=== PATIENT | female | born 2000 | race Caucasian/White ===

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

== ENCOUNTER 2019-09-22 17:31 | Emergency (ER) | payer OTHER, SELFPAY ==
--- NOTE | 2019-09-22 18:28 | RAD REPORT ---
EXAM DESCRIPTION: CT - Head Brain Wo Cont - 09/22/2019 6:17 pm CLINICAL HISTORY: SYNCOPE, fall, right-sided head trauma COMPARISON: No comparisons TECHNIQUE: Axial 5 mm thick images of the head were obtained without IV contrast. All CT scans are performed using dose optimization technique as appropriate and may include automated exposure control or mA/KV adjustment according to patient size. FINDINGS: No intracranial hemorrhage, mass, edema or shift of mid-line structures. No abnormal extra -axial fluid collections. Ventricles are normal. Mastoid air cells and visualized portions of the paranasal sinuses are clear. Small right-sided parietal scalp hematoma is present. Is intact. IMPRESSION: No intracranial abnormality seen. Right parietal scalp hematoma with underlying bone intact.
--- NOTE | 2019-09-22 18:57 | RAD REPORT ---
EXAM DESCRIPTION: RAD - Chest Single View - 09/22/2019 6:10 pm CLINICAL HISTORY: syncope, shortness of breath TECHNIQUE: AP portable chest image was obtained 09/22/2019 6:10 pm . FINDINGS: Lungs are clear. Bilateral nipple shadows are present. Heart and vasculature are normal. N o measurable pleural effusion and no pneumothorax. No acute bony abnormality seen. No acute aortic fi ndings suspected. IMPRESSION: No acute cardiopulmonary process.
[2019-09-22 19:15] LABS: Absolute Lymphocytes (CBC) 1.5 K/uL (0.7-4.9); Basophils % 0.2 % (0-1.3); Hematocrit 41.3 % (36.0-45.0); Lymphocytes % 12.4 % (15.3-44.8); MPV 8.3 fL (7.6-11.3); RBC Red Blood Cell Count 4.35 M/uL (3.86-4.86)
[2019-09-22 19:32] LABS: BUN Blood Urea Nitrogen 11 mg/dL (7-18); Bicarbonate 28 mmol/L (21-32); Glucose Level 98 mg/dL (74-106); Sodium Level 142 mmol/L (136-145)
--- NOTE | 2019-09-22 19:56 | ER ---
Nurse's Notes [facility] Name: Susy Sewell Age: 19 yrs Sex: Female : 2000 Arrival Date: 09/22/2019 Time: 17:33 Bed 27 Private MD: Diagnosis: Syncope and collapse;Contusion of scalp Presentation: 09/21 17:34 Chief complaint:. Chief complaint: EMS states: "Patient was at work at [employer] when vc she has a syncopal episode with +LOC. Patient hit her head on the tile floor when she passed out. She refused to let us start an IV. She states she wasn't feeling well last week and was swabbed for the flu and strep, both results were negative.". Coronavirus screen: The patient has NOT traveled to a country currently being monitored by the CDC within the last 14 days. Ebola Screen: No symptoms or risks identified at this time. Initial Sepsis Screen: Does the patient meet any 2 criteria? No. Patient's initial sepsis screen is negative. Does the patient have a suspected source of infection? No. Patient's initial sepsis screen is negative. Risk Assessment: Do you want to hurt yourself or someone else? Patient reports no desire to harm self or others. 17:34 Method Of Arrival: EMS: [facility] vc 17:34 Acuity: SHEILA 3 vc Historical: - Allergies: 17:51 No Known Allergies; vc - Home Meds: 17:51 None [Active]; vc - PMHx: 17:51 Anxiety; Bipolar disorder; vc - PSHx: 17:51 "Ovarian surgery as a baby"; vc - Immunization history:: Adult Immunizations up to date. - Social history:: Smoking status: Patient denies any tobacco usage or history of. Assessment: 17:33 General: Appears in no apparent distress. comfortable. Pain: Denies pain. Neuro: Level vc of Consciousness is awake, alert, obeys commands, Oriented to person, place, time, situation, Appropriate for age. Cardiovascular: Reports diaphoresis, lightheadedness, nausea, syncope, Rhythm is regular. Respiratory: Airway is patent Respiratory effort is even, unlabored, Respiratory pattern is regular, symmetrical. GI: No signs and/or symptoms were reported involving the gastrointestinal system. : No signs and/or symptoms were reported regarding the genitourinary system. EENT: No signs and/or symptoms were reported regarding the EENT system. Derm: knot on right side of head. Musculoskeletal: No signs and/or symptoms reported regarding the musculoskeletal system. 18:30 Reassessment: Patient and/or family updated on plan of care and expected duration. Pain vc level reassessed. Patient is alert, oriented x 3, equal unlabored respirations, skin warm/dry/pink. 19:30 Reassessment: Patient and/or family updated on plan of care and expected duration. Pain vc level reassessed. Patient is alert, oriented x 3, equal unlabored respirations, skin warm/dry/pink. Patient states symptoms have improved. Vital Signs: 17:37 BP 106 / 75; Pulse 68; Resp 16; Temp 97.8(O); Pulse Ox 100% ; lt1 ED Course: 17:33 Patient arrived in ED. vc 17:37 Triage completed. vc 17:40 Jered Perez FNP-C is PHCP. la1 17:40 John Cowan MD is Attending Physician. la1 17:52 Mounika Nair, MIGUEL is Primary Nurse. vc 18:30 Chest Single View XRAY In Process Unspecified. EDMS 19:21 CT Head Brain wo Cont Sent. vc Administered Medications: No medications were administered Outcome: 19:55 Discharge ordered by . la1 20:36 Patient left the ED. mw2 Signatures: Dispatcher [employer] EDMS Jered Perez FNP-C DIGITAL ART DIRECTOR-[facility] Jesenia Cano mw2 Oumou Oliverah lt1 Mounika Nair, RN RN vc
--- NOTE | 2019-09-22 19:56 | EDPHYS ---
Physician Documentation [facility] Name: Susy Sewell Age: 19 yrs Sex: Female : 2000 Arrival Date: 09/22/2019 Time: 17:33 Bed 27 Private MD: ED Physician John Cowan HPI: 09/21 18:38 This 19 yrs old Female presents to ER via EMS with complaints of Syncope. la1 18:38 The patient has experienced syncope, became unresponsive. Onset: The symptoms/episode la1 began/occurred just prior to arrival. Duration: This was a single episode. Context: occurred at work, occurred while the patient was standing, Just prior to the episode the patient experienced abdominal pain. Associated injury: Head/face: swelling, hematoma to right posterior scalp. Associated signs and symptoms: Pertinent positives:. Associated signs and symptoms: Pertinent negatives: abdominal pain, agitation, ataxia, blurred vision, chest pain, combativeness, confusion, diaphoresis. Current symptoms: Currently, the patient is not experiencing any symptoms. The patient has not experienced similar symptoms in the past. Historical: - Allergies: 17:51 No Known Allergies; vc - Home Meds: 17:51 None [Active]; vc - PMHx: 17:51 Anxiety; Bipolar disorder; vc - PSHx: 17:51 "Ovarian surgery as a baby"; vc - Immunization history:: Adult Immunizations up to date. - Social history:: Smoking status: Patient denies any tobacco usage or history of. ROS: 18:39 Constitutional: Negative for fever, chills, and weight loss, Eyes: Negative for injury, la1 pain, redness, and discharge, ENT: Negative for injury, pain, and discharge, Neck: Negative for injury, pain, and swelling, Cardiovascular: Negative for chest pain, palpitations, and edema, Respiratory: Negative for shortness of breath, cough, wheezing, and pleuritic chest pain, Abdomen/GI: Negative for abdominal pain, nausea, vomiting, diarrhea, and constipation, Back: Negative for injury and pain, MS/Extremity: Negative for injury and deformity, Skin: Negative for injury, rash, and discoloration. Exam: 18:40 Constitutional: This is a well developed, well nourished patient who is awake, alert, la1 and in no acute distress. 18:40 Eyes: Pupils equal round and reactive to light, extra-ocular motions intact. Lids and lashes normal. Conjunctiva and sclera are non-icteric and not injected. Cornea within normal limits. Periorbital areas with no swelling, redness, or edema. ENT: Mucous membranes moist. Neck: Trachea midline Chest/axilla: Normal chest wall appearance and motion. Cardiovascular: Regular rate and rhythm with a normal S1 and S2. Respiratory: Lungs have equal breath sounds bilaterally, clear to auscultation Abdomen/GI: Soft, non-tender, with normal bowel sounds. Back: No spinal tenderness. No costovertebral tenderness. Full range of motion. Skin: Warm, dry with normal turgor. Normal color with no rashes, no lesions, and no evidence of cellulitis. MS/ Extremity: Pulses equal, no cyanosis. Neurovascular intact. Full, normal range of motion. 18:40 Head/face: Noted is hematoma, that is moderate, of the right side of the back of head. Vital Signs: 17:37 BP 106 / 75; Pulse 68; Resp 16; Temp 97.8(O); Pulse Ox 100% ; lt1 MDM: 17:52 Patient medically screened. la1 19:53 Differential Diagnosis: cardiac arrhythmia, cerebrovascular accident, drug effect, la1 idiopathic syncope, , pseudo seizure, seizure, vasovagal episode. Data reviewed: vital signs, nurses notes, EMS record, lab test result(s), EKG, radiologic studies, and as a result, I will discharge patient. Data interpreted: Pulse oximetry: on room air is 100 %. Interpretation: normal. Counseling: I had a detailed discussion with the patient and/or guardian regarding: the historical points, exam findings, and any diagnostic results supporting the discharge/admit diagnosis, lab results, radiology results, the need for outpatient follow up, a family practitioner, to return to the emergency department if symptoms worsen or persist or if there are any questions or concerns that arise at home. Special discussion: Based on the patient's history, exam, and Dx evaluation, there is no indication for emergent intervention or inpatient Tx. It is understood by the patient/guardian that if the Sx's persist or worsen they need to return immediately for re-evaluation. ED course: discussed that thyroid testing could be completed on an outpatient basis as pt is not showing overt sx of hypothyroidism. 09/21 17:51 Order name: CBC with Diff; Complete Time: 19:24 [facility] 09/21 17:51 Order name: BMP; Complete Time: 19:48 [facility] 09/21 17:51 Order name: CT Head Brain wo Cont [facility] 09/21 17:51 Order name: Chest Single View XRAY; Complete Time: 19:48 [facility] 09/21 19:30 Order name: Urine Dipstick--Ancillary (enter results) [facility] 09/21 19:30 Order name: Urine --Ancillary (enter results) [facility] 09/21 17:51 Order name: EKG; Complete Time: 17:51 [facility] 09/21 17:51 Order name: EKG - Nurse/Tech; Complete Time: 19:21 [facility] 09/21 17:51 Order name: IV; Complete Time: 19:08 [facility] 09/21 17:51 Order name: Urine Dipstick-Ancillary (obtain specimen); Complete Time: 19:21 [facility] 09/21 17:51 Order name: Urine Test (obtain specimen); Complete Time: 19:21 [facility] 09/21 19:15 Order name: CT; Complete Time: 19:24 EDMS Administered Medications: No medications were administered Disposition: 09/22 07:38 Co-signature as Attending Physician, John Cowan MD I agree with the assessment and kdr plan of care. Disposition: 09/22/19 19:55 Discharged to Home. Impression: Syncope and collapse, Contusion of scalp. - Condition is Stable. - Discharge Instructions: Near-Syncope, Syncope, Vasovagal Syncope, Adult. - Work release form, Medication Reconciliation Form, Thank You Letter form. - Follow up: Private Physician; When: 2 - 3 days; Reason: Recheck today's complaints, Re-evaluation by your physician. - Problem is new. - Symptoms have improved. Signatures: Dispatcher [employer] EDMS John Cowan MD MD [facility] Jered Perez, WARRANTY ADMINISTRATOR-C WARRANTY ADMINISTRATOR-Cla1 Jesenia Cano mw2 Mounika Nair, RN RN vc Corrections: (The following items were deleted from the chart) 09/21 20:36 19:55 09/22/2019 19:55 Discharged to Home. Impression: Syncope and collapse; Contusion mw2 of scalp. Condition is Stable. Forms are Medication Reconciliation Form, Thank You Letter, Antibiotic Education, Prescription Opioid Use. Follow up: Private Physician; When: 2 - 3 days; Reason: Recheck today's complaints, Re-evaluation by your physician. Problem is new. Symptoms have improved. la1
[2019-09-22 20:26] LABS: Urine Blood NEGATIVE (NEG); Urine Glucose NEGATIVE (NEG); Urine Protein TRACE (NEG); Urine Specific Gravity >1.030 (1.005-1.030)
[2019-09-22 21:05] VITALS: BP 106/75; TEMP 97.8; O2SAT 100
--- NOTE | 2019-09-23 07:29 | EKG ---
Test Date: 2019-09-22 Test Time: 19:13:24 Heading Pinner: GRAYSON MEASUREMENT RESULTS: Intervals: Rate: 63 WI: 142 QRSD: 76 QT: 408 QTc: 417 [place]: P: 46 WI: 142 QRS: 81 T: 67 INTERPRETIVE STATEMENTS: Normal sinus rhythm with sinus arrhythmia Normal ECG Compared to ECG 07/07/2007 13:09:05 No significant changes Electronically Signed On 09-23-19 07:27:49 CDT by Amadou Somers
== END 2019-09-22 20:36 | disposition home or self-care (01) ==
LOC: ER 17:31
DX: S00.03XA Contusion of scalp, initial encounter (principal); X58.XXXA Exposure to other specified factors, initial encounter; Y93.9 Activity, unspecified; Y92.89 Other specified places as the place of occurrence of the external cause; Y99.8 Other external cause status
CPT/HCPCS: 36415; 70450; 71045; 80048; 81003; 81025; 85025; 93005; 99283

== ENCOUNTER 2019-12-20 13:36 | Emergency (ER) | payer SELFPAY ==
--- NOTE | 2019-12-20 14:55 | RAD REPORT ---
EXAM DESCRIPTION: RAD - Knee Right 3 View - 12/20/2019 2:45 pm CLINICAL HISTORY: PAIN COMPARISON: No comparisons FINDINGS: No fracture, dislocation or periosteal reaction.No joint effusion seen. No joint space anthony rowing. No foreign body or other soft tissue abnormality. IMPRESSION: Negative right knee. Clinical concerns for internal derangement or occult bony injury could be further assessed with MR im aging.
[2019-12-20] MEDS ORDERED: HYDROCODONE/APAP 5/325 MG TAB ONE (15:05)
--- NOTE | 2019-12-20 17:38 | RAD REPORT ---
EXAM DESCRIPTION: MRI - Knee Right Wo Cont - 12/20/2019 5:27 pm CLINICAL HISTORY: pain, no rom COMPARISON: Knee Right 3 View dated 12/20/2019 TECHNIQUE: Sagittal and axial PD and T2 fat sat sequences obtained. Coronal T2 fat sat and T1 sequen leonard also obtained. FINDINGS: No occult fracture marrow replacing process or confirmed bone bruising. There are no corti sunshine disruption changes identifiable. No chondromalacia or acute chondral finding. No full thickness o steochondral defect. The anterior cruciate, posterior cruciate, medial collateral and lateral collateral ligaments are int act. No meniscal tear or suspicious meniscal signal pattern. Patella tendon, quadriceps tendon and the support structures show no suspicious finding. No abnormal joint effusion. No intra-articular loose body seen. Adjacent soft tissue show no suspicious finding. IMPRESSION: MRI right knee examination shows no significant finding.
--- NOTE | 2019-12-20 17:47 | ER ---
Nurse's Notes [facility] Name: Ssuy Sewell Age: 19 yrs Sex: Female : 2000 Arrival Date: 12/20/2019 Time: 13:40 Bed 25 Private MD: Diagnosis: Fall on same level from slipping, tripping and stumbling;Pain in right knee Presentation: 12/19 13:52 Chief complaint: Patient states: i was mopping and i slipped and fell and i felt a snap tw2 in my RIGHT knee cap and my boyfriend helped me stand up and we heard it pop back in place and i cant stand on it at all, it feels like i ripped something or tore something. Coronavirus screen: Patient denies a cough. Patient denies shortness of breath or difficulty breathing. Patient denies measured and/or subjective temperature greater than 100.4F prior to today's visit. Patient denies travel on a cruise ship or to a country the [facility] currently lists as an affected area. Patient denies contact with known and/or suspected case of COVID-19. Ebola Screen: Patient denies travel to an Ebola-affected area in the 21 days before illness onset. Initial Sepsis Screen: Does the patient meet any 2 criteria? No. Patient's initial sepsis screen is negative. Does the patient have a suspected source of infection? No. Patient's initial sepsis screen is negative. Risk Assessment: Do you want to hurt yourself or someone else? Patient reports no desire to harm self or others. Onset of symptoms was December 20, 2019. 13:52 Method Of Arrival: Wheelchair tw2 13:52 Acuity: SHEILA 4 tw2 Triage Assessment: 13:54 General: Appears in no apparent distress. uncomfortable, slender, Behavior is calm, tw2 cooperative, appropriate for age. Pain: Complains of pain in right knee. 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 - Social history:: Smoking status: Patient uses street drugs, marijuana, "i spoke pot every other weekend", Patient/guardian denies using tobacco products. Screenin:42 Abuse screen: Denies threats or abuse. Nutritional screening: No deficits noted. tw2 Tuberculosis screening: No symptoms or risk factors identified. Fall Risk None identified. Assessment: 14:20 General: Appears in no apparent distress. slender, Behavior is calm, cooperative, tw2 appropriate for age. Pain: Complains of pain in right knee. Neuro: Level of Consciousness is awake, alert, obeys commands, Oriented to person, place, time, situation. Cardiovascular: Capillary refill < 3 seconds Patient's skin is warm and dry. Respiratory: Airway is patent Respiratory effort is even, unlabored, Respiratory pattern is regular, symmetrical. GI: No signs and/or symptoms were reported involving the gastrointestinal system. : No signs and/or symptoms were reported regarding the genitourinary system. EENT: No signs and/or symptoms were reported regarding the EENT system. Derm: No signs and/or symptoms reported regarding the dermatologic system. Musculoskeletal: Circulation, motion, and sensation intact. Range of motion: limited in right knee Reports pain in right knee. Vital Signs: 13:52 BP 112 / 74; Pulse 77; Resp 17; Temp 98.3(TE); Pulse Ox 96% on R/A; Weight 49.9 kg (R); tw2 Height 5 ft. 5 in. (165.10 cm); Pain 7/10; 13:52 Body Mass Index 18.30 (49.90 kg, 165.10 cm) tw2 ED Course: 13:40 Patient arrived in ED. fj1 13:54 Triage completed. tw2 13:54 Arm band placed on. tw2 14:00 Lashell Valentin [facility]C [facility]. snw 14:00 John Cowan MD is Attending Physician. snw 14:19 Ayala Babin, MIGUEL is Primary Nurse. iw 14:20 Bed in low position. Call light in reach. tw2 14:46 Knee Right 3 View XRAY In Process Unspecified. EDMS 17:23 Knee Right Wo Cont In Process Unspecified. EDMS 17:45 Alex Mcdonald MD is Referral Physician. snw 18:10 No provider procedures requiring assistance completed. Patient did not have IV access iw during this emergency room visit. Administered Medications: 15:01 Drug: Dexter 5 mg-325 mg 1 tabs Route: PO; iw 15:30 Follow up: Response: No adverse reaction iw 18:06 Drug: Valium 5 mg Route: PO; iw 18:25 Follow up: Response: No adverse reaction iw Outcome: 17:47 Discharge ordered by MD. prado 18:11 Discharged to home ambulatory. iw 18:11 Condition: good 18:11 Discharge instructions given to patient, Instructed on discharge instructions, follow up and referral plans. medication usage, Demonstrated understanding of instructions, follow-up care, medications, Prescriptions given X 2. 18:12 Patient left the ED. iw Signatures: Dispatcher [employer] EDMS Lashell Valentin, MEETING PLANNER-C MEETING PLANNER-Csnw Ayala Babin, RN RN iw Ricarda Godwin RN RN tw2 Lan White fj1
--- NOTE | 2019-12-20 17:47 | EDPHYS ---
Physician Documentation [facility] Name: Susy Sewell Age: 19 yrs Sex: Female : 2000 Arrival Date: 12/20/2019 Time: 13:40 Bed 25 Private MD: ED Physician John Cowan HPI: 12/19 16:35 This 19 yrs old Female presents to ER via Wheelchair with complaints of Fall snw Injury. 16:35 Details of fall: The patient fell from an upright position, slipped while mopping. snw Onset: The symptoms/episode began/occurred suddenly, today. Associated injuries: The patient sustained right knee, decreased range of motion, painful injury, swelling. Severity of symptoms: At their worst the symptoms were incapacitating, in the emergency department the symptoms have improved, moderately. The patient has not experienced similar symptoms in the past. The patient has not recently seen a physician. 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 - Social history:: Smoking status: Patient uses street drugs, marijuana, "i spoke pot every other weekend", Patient/guardian denies using tobacco products. ROS: 16:34 Constitutional: Negative for fever, chills, and weight loss, Eyes: Negative for injury, snw pain, redness, and discharge, ENT: Negative for injury, pain, and discharge, Neck: Negative for injury, pain, and swelling, Cardiovascular: Negative for chest pain, palpitations, and edema, Respiratory: Negative for shortness of breath, cough, wheezing, and pleuritic chest pain, Abdomen/GI: Negative for abdominal pain, nausea, vomiting, diarrhea, and constipation, Back: Negative for injury and pain, : Negative for injury, bleeding, discharge, and swelling, Skin: Negative for injury, rash, and discoloration, Neuro: Negative for headache, weakness, numbness, tingling, and seizure, Psych: Negative for depression, anxiety, suicide ideation, homicidal ideation, and hallucinations. 16:34 MS/extremity: Positive for decreased range of motion, pain, swelling, of the right knee. Exam: 16:33 Constitutional: This is a well developed, well nourished patient who is awake, alert, snw and in no acute distress. Head/Face: Normocephalic, atraumatic. Eyes: Pupils equal round and reactive to light, extra-ocular motions intact. Lids and lashes normal. Conjunctiva and sclera are non-icteric and not injected. Cornea within normal limits. Periorbital areas with no swelling, redness, or edema. ENT: Nares patent. No nasal discharge, no septal abnormalities noted. Tympanic membranes are normal and external auditory canals are clear. Oropharynx with no redness, swelling, or masses, exudates, or evidence of obstruction, uvula midline. Mucous membranes moist. Neck: Trachea midline, no thyromegaly or masses palpated, and no cervical lymphadenopathy. Supple, full range of motion without nuchal rigidity, or vertebral point tenderness. No Meningismus. Chest/axilla: Normal chest wall appearance and motion. Nontender with no deformity. No lesions are appreciated. Cardiovascular: Regular rate and rhythm with a normal S1 and S2. No gallops, murmurs, or rubs. Normal PMI, no JVD. No pulse deficits. Respiratory: Lungs have equal breath sounds bilaterally, clear to auscultation and percussion. No rales, rhonchi or wheezes noted. No increased work of breathing, no retractions or nasal flaring. Abdomen/GI: Soft, non-tender, with normal bowel sounds. No distension or tympany. No guarding or rebound. No evidence of tenderness throughout. Back: No spinal tenderness. No costovertebral tenderness. Full range of motion. Skin: Warm, dry with normal turgor. Normal color with no rashes, no lesions, and no evidence of cellulitis. Neuro: Awake and alert, GCS 15, oriented to person, place, time, and situation. Cranial nerves II-XII grossly intact. Motor strength 5/5 in all extremities. Sensory grossly intact. Cerebellar exam normal. Normal gait. Psych: Awake, alert, with orientation to person, place and time. Behavior, mood, and affect are within normal limits. 16:33 Musculoskeletal/extremity: Extremities: grossly normal except: noted in the right knee: decreased ROM, pain, swelling, Circulation is intact in all extremities. Vital Signs: 13:52 BP 112 / 74; Pulse 77; Resp 17; Temp 98.3(TE); Pulse Ox 96% on R/A; Weight 49.9 kg (R); tw2 Height 5 ft. 5 in. (165.10 cm); Pain 7/10; 13:52 Body Mass Index 18.30 (49.90 kg, 165.10 cm) tw2 MDM: 14:42 Patient medically screened. snw 20:30 Data reviewed: vital signs, nurses notes. Data interpreted: Pulse oximetry: on room air snw is 96 %. Interpretation: normal. Counseling: I had a detailed discussion with the patient and/or guardian regarding: the historical points, exam findings, and any diagnostic results supporting the discharge/admit diagnosis, radiology results, the need for outpatient follow up, to return to the emergency department if symptoms worsen or persist or if there are any questions or concerns that arise at home. Response to treatment: the patient's symptoms have mildly improved after treatment. Special discussion: Based on the history and exam findings, there is no indication for further emergent testing or inpatient evaluation. I discussed with the patient/guardian the need to see the orthopedic surgeon for further evaluation of the symptoms. I discussed with the patient/guardian the need to see the primary care provider for further evaluation of the symptoms. 12/19 14:01 Order name: Knee Right 3 View XRAY; Complete Time: 15:04 snw 12/19 15:24 Order name: Knee Right Wo Cont; Complete Time: 17:42 EDMS 12/19 17:44 Order name: Antonio wrap-joint; Complete Time: 18:06 snw Administered Medications: 15:01 Drug: [place] 5 mg-325 mg 1 tabs Route: PO; iw 15:30 Follow up: Response: No adverse reaction iw 18:06 Drug: Valium 5 mg Route: PO; iw 18:25 Follow up: Response: No adverse reaction iw Disposition: 12/20 13:44 Co-signature as Attending Physician, John Cowan MD I agree with the assessment and kdr plan of care. Disposition: 12/20/19 17:47 Discharged to Home. Impression: Fall on same level from slipping, tripping and stumbling, Pain in right knee. - Condition is Stable. - Discharge Instructions: Joint Pain, Fall Prevention in the Home, How to Use a Knee Brace, Knee Pain, Cryotherapy, [id number], Heat Therapy. - Prescriptions for Mobic 7.5 mg Oral Tablet - take 1 tablet by ORAL route once daily take with food; 20 tablet. Cyclobenzaprine 10 mg Oral Tablet - take 1 tablet by ORAL route every 8 hours As needed; 30 tablet. - Medication Reconciliation Form, Thank You Letter, Antibiotic Education, Prescription Opioid Use, Work release form form. - Follow up: Emergency Department; When: As needed; Reason: Worsening of condition. Follow up: Alex Mcdonald MD; When: 10 - 14 days; Reason: Recheck today's complaints, Continuance of care, Re-evaluation by your physician. Follow up: Private Physician; When: 1 - 2 days; Reason: Recheck today's complaints, Continuance of care, Re-evaluation by your physician. Signatures: Dispatcher [employer] EDMS John Cowan MD MD [facility] Lashell Valentin FNP-C MACHINE EDGE BANDER-Ayala Marte, MIGUEL RN Ricarda Godwin RN RN tw2 Corrections: (The following items were deleted from the chart) 12/19 18:12 17:47 12/20/2019 17:47 Discharged to Home. Impression: Fall on same level from iw slipping, tripping and stumbling; Pain in right knee. Condition is Stable. Forms are Medication Reconciliation Form, Thank You Letter, Antibiotic Education, Prescription Opioid Use. Follow up: Emergency Department; When: As needed; Reason: Worsening of condition. Follow up: Alex Mcdonald; When: 10 - 14 days; Reason: Recheck today's complaints, Continuance of care, Re-evaluation by your physician. Follow up: Private Physician; When: 1 - 2 days; Reason: Recheck today's complaints, Continuance of care, Re-evaluation by your physician. snw
[2019-12-20] MEDS ORDERED: DIAZEPAM 5 MG TABLET ONE (18:07)
[2019-12-20 18:20] VITALS: BP 112/74; TEMP 98.3; O2SAT 96
== END 2019-12-20 18:12 | disposition home or self-care (01) ==
LOC: ER 13:36
DX: M25.561 Pain in right knee (principal); W01.0XXA Fall on same level from slipping, tripping and stumbling without subsequent striking against object, initial encounter; Y93.E5 Activity, floor mopping and cleaning; Y92.9 Unspecified place or not applicable
CPT/HCPCS: 99283

== ENCOUNTER 2019-12-31 22:38 | Emergency (ER) | payer OTHER, SELFPAY ==
--- NOTE | 2019-12-31 23:13 | ER ---
Nurse's Notes [facility] Name: Susy Sewell Age: 19 yrs Sex: Female : 2000 Arrival Date: 12/31/2019 Time: 22:42 Bed 4 Private MD: Diagnosis: Pain in right knee;Sprain of medial collateral ligament of right knee Presentation: 12/30 22:49 Chief complaint: Patient states: Dislocated right knee over 10 days ago. States she ll1 took off work for 6 days. When she went back to work (12/28) right ankle began to swell since. PMS intact. Coronavirus screen: Proceed with normal triage. Patient denies a cough. Patient denies shortness of breath or difficulty breathing. Patient denies measured and/or subjective temperature greater than 100.4F prior to today's visit. Patient denies travel on a cruise ship or to a country the [facility] currently lists as an affected area. Patient denies contact with known and/or suspected case of COVID-19. Ebola Screen: Patient denies travel to an Ebola-affected area in the 21 days before illness onset. Initial Sepsis Screen: Does the patient meet any 2 criteria? No. Patient's initial sepsis screen is negative. Risk Assessment: Do you want to hurt yourself or someone else? Patient reports no desire to harm self or others. Onset of symptoms was December 28, 2019. 22:49 Method Of Arrival: Ambulatory ll1 22:49 Acuity: SHEILA 4 ll1 23:05 Initial Sepsis Screen: Does the patient have a suspected source of infection? No. mg2 Patient's initial sepsis screen is negative. LATHE WINDER: 23:50 lmp unknwn mg2 Historical: - Allergies: 22:53 No Known Allergies; ll1 - PMHx: 22:53 Anxiety; Bipolar disorder; ll1 - PSHx: 22:53 "Ovarian surgery as a baby"; ll1 - Immunization history:: Flu vaccine is not up to date. - Social history:: Smoking status: Patient denies any tobacco usage or history of. Patient/guardian denies using alcohol, street drugs, tobacco products. - Family history:: not pertinent. Screenin:04 Abuse screen: Denies threats or abuse. Denies injuries from another. Nutritional mg2 screening: No deficits noted. Tuberculosis screening: No symptoms or risk factors identified. Fall Risk Ambulatory Aid- None/Bed Rest/Nurse Assist (0 pts). Assessment: 23:03 General: Appears in no apparent distress. comfortable, Behavior is calm, cooperative. mg2 Pain: Complains of pain in right knee (inner side) and numbness and tingling in the right ankle. Neuro: Level of Consciousness is awake, alert, obeys commands, Oriented to person, place, time, situation. Cardiovascular: Capillary refill < 3 seconds Patient's skin is warm and dry. Respiratory: Airway is patent Respiratory effort is even, unlabored, Respiratory pattern is regular, symmetrical. GI: No signs and/or symptoms were reported involving the gastrointestinal system. : No signs and/or symptoms were reported regarding the genitourinary system. EENT: No signs and/or symptoms were reported regarding the EENT system. Derm: Skin is intact, is healthy with good turgor, Skin is pink, warm \\T\\ dry. normal. Musculoskeletal: Circulation, motion, and sensation intact. Capillary refill < 3 seconds. Vital Signs: 22:49 BP 120 / 83; Pulse 63; Resp 16; Temp 98.6; Pulse Ox 98% ; Pain 9/10; ll1 23:50 BP 120 / 80; Pulse 70; Resp 18; Temp 98; Pulse Ox 100% on R/A; mg2 ED Course: 22:42 Patient arrived in ED. es 22:53 Triage completed. ll1 22:54 Arm band placed on Patient placed in an exam room, on a stretcher. ll1 22:55 Grant Pena RN is Primary Nurse. mg2 22:56 Allen Mukherjee MD is Attending Physician. day 23:04 Patient has correct armband on for positive identification. mg2 23:04 No provider procedures requiring assistance completed. Patient did not have IV access mg2 during this emergency room visit. 23:12 Alex Mcdonald MD is Referral Physician. day 23:18 Door closed. Warm blanket given. Ice pack to injury. mg2 23:45 Crutch training done. Knee immobilizer applied on right knee. mg2 Administered Medications: 23:17 Drug: [place] (7.5 mg-325 mg) 1 tabs Route: PO; mg2 23:50 Follow up: Response: No adverse reaction mg2 Outcome: 23:13 Discharge ordered by . day 23:52 Discharged to home with crutches, with family. mg2 23:52 Condition: stable 23:52 Discharge instructions given to patient, family, Instructed on discharge instructions, mg2 follow up and referral plans. medication usage, crutch walking, Demonstrated understanding of instructions, follow-up care, medications, crutch walking. 23:53 Patient left the ED. mg2 Signatures: Allen Mukherjee MD MD cha Salyer, Edna es Gardose, Michele, RN RN mg2 Percy Chambers RN RN ll1
--- NOTE | 2019-12-31 23:13 | EDPHYS ---
Physician Documentation [facility] Name: Susy Sewell Age: 19 yrs Sex: Female : 2000 Arrival Date: 12/31/2019 Time: 22:42 Bed 4 Private MD: ED Physician Allen Mukherjee HPI: 12/30 23:08 This 19 yrs old Female presents to ER via Ambulatory with complaints of FOOT day AND KNEE PROBLEM. 23:08 The patient presents with decreased range of motion, pain, swelling. The complaints day affect the right knee. Context: The problem was sustained at home. Onset: The symptoms/episode began/occurred 1 week(s) ago. Modifying factors: The symptoms are alleviated by remaining still, the symptoms are aggravated by nothing. Associated signs and symptoms: The patient has no apparent associated signs or symptoms. Treatment prior to arrival includes: splinting the affected extremity. Severity of symptoms: At their worst the symptoms were moderate, in the emergency department the symptoms are unchanged. The patient has not experienced similar symptoms in the past. [employer]: 23:50 lmp unknwn mg2 Historical: - Allergies: 22:53 No Known Allergies; ll1 - PMHx: 22:53 Anxiety; Bipolar disorder; ll1 - PSHx: 22:53 "Ovarian surgery as a baby"; ll1 - Immunization history:: Flu vaccine is not up to date. - Social history:: Smoking status: Patient denies any tobacco usage or history of. Patient/guardian denies using alcohol, street drugs, tobacco products. - Family history:: not pertinent. ROS: 23:08 Constitutional: Negative for fever, chills, and weight loss, Eyes: Negative for injury, day pain, redness, and discharge, ENT: Negative for injury, pain, and discharge, Neck: Negative for injury, pain, and swelling, Cardiovascular: Negative for chest pain, palpitations, and edema, Respiratory: Negative for shortness of breath, cough, wheezing, and pleuritic chest pain, Abdomen/GI: Negative for abdominal pain, nausea, vomiting, diarrhea, and constipation, Back: Negative for injury and pain, : Negative for injury, bleeding, discharge, and swelling, Skin: Negative for injury, rash, and discoloration, Neuro: Negative for headache, weakness, numbness, tingling, and seizure, Psych: Negative for depression, anxiety, suicide ideation, homicidal ideation, and hallucinations, Allergy/Immunology: Negative for hives, rash, and allergies, Endocrine: Negative for neck swelling, polydipsia, polyuria, polyphagia, and marked weight changes, Hematologic/Lymphatic: Negative for swollen nodes, abnormal bleeding, and unusual bruising. 23:08 MS/extremity: Positive for decreased range of motion, pain, of the lateral aspect of right knee and right knee. Exam: 23:08 Constitutional: This is a well developed, well nourished patient who is awake, alert, day and in no acute distress. Head/Face: Normocephalic, atraumatic. Eyes: Pupils equal round and reactive to light, extra-ocular motions intact. Lids and lashes normal. Conjunctiva and sclera are non-icteric and not injected. Cornea within normal limits. Periorbital areas with no swelling, redness, or edema. ENT: Nares patent. No nasal discharge, no septal abnormalities noted. Tympanic membranes are normal and external auditory canals are clear. Oropharynx with no redness, swelling, or masses, exudates, or evidence of obstruction, uvula midline. Mucous membranes moist. Neck: Trachea midline, no thyromegaly or masses palpated, and no cervical lymphadenopathy. Supple, full range of motion without nuchal rigidity, or vertebral point tenderness. No Meningismus. Chest/axilla: Normal chest wall appearance and motion. Nontender with no deformity. No lesions are appreciated. Cardiovascular: Regular rate and rhythm with a normal S1 and S2. No gallops, murmurs, or rubs. Normal PMI, no JVD. No pulse deficits. Respiratory: Lungs have equal breath sounds bilaterally, clear to auscultation and percussion. No rales, rhonchi or wheezes noted. No increased work of breathing, no retractions or nasal flaring. Abdomen/GI: Soft, non-tender, with normal bowel sounds. No distension or tympany. No guarding or rebound. No evidence of tenderness throughout. Back: No spinal tenderness. No costovertebral tenderness. Full range of motion. Skin: Warm, dry with normal turgor. Normal color with no rashes, no lesions, and no evidence of cellulitis. Neuro: Awake and alert, GCS 15, oriented to person, place, time, and situation. Cranial nerves II-XII grossly intact. Motor strength 5/5 in all extremities. Sensory grossly intact. Cerebellar exam normal. Normal gait. Psych: Awake, alert, with orientation to person, place and time. Behavior, mood, and affect are within normal limits. 23:08 Musculoskeletal/extremity: Extremities: grossly normal except: decreased ROM, pain, ROM: limited active range of motion due to pain, limited passive range of motion due to pain, in the lateral aspect of right knee and right knee, Pulses: are normal with no appreciated deficits, Sensation intact. Compartment Syndrome exam of affected extremity: is normal. DVT Exam: no swelling, negative Homans' sign noted on exam, no appreciated bluish discoloration, no erythema, no increased warmth, pain, tenderness. Vital Signs: 22:49 BP 120 / 83; Pulse 63; Resp 16; Temp 98.6; Pulse Ox 98% ; Pain 9/10; ll1 23:50 BP 120 / 80; Pulse 70; Resp 18; Temp 98; Pulse Ox 100% on R/A; mg2 MDM: 22:56 Patient medically screened. [facility] 23:11 Data reviewed: vital signs, nurses notes, radiologic studies, MRI, plain films. [facility] 12/30 23:06 Order name: Knee Immobilizer; Complete Time: 23:17 [facility] 12/30 23:06 Order name: Crutches; Complete Time: 23:53 [facility] 12/30 23:06 Order name: Ice pack; Complete Time: 23:17 [facility] Administered Medications: 23:17 Drug: [employer] (7.5 mg-325 mg) 1 tabs Route: PO; mg2 23:50 Follow up: Response: No adverse reaction mg2 Disposition: 12/31/19 23:13 Discharged to Home. Impression: Pain in right knee, Sprain of medial collateral ligament of right knee. - Condition is Stable. - Discharge Instructions: Joint Pain, How to Use a Knee Brace, Musculoskeletal Pain, Knee Pain, Cryotherapy, [id number], Cryotherapy, Knee Pain, [id number], Joint Pain, [id number]. - Prescriptions for Motrin IB 200 mg Oral Tablet - take 2 tablet by ORAL route every 6 hours As needed as needed with food; 30 tablet. - Medication Reconciliation Form, Thank You Letter, Antibiotic Education, Prescription Opioid Use, Work release form form. - Follow up: Private Physician; When: 2 - 3 days; Reason: Recheck today's complaints, Re-evaluation by your physician. Follow up: Alex Mcdonald MD; When: 2 - 3 days; Reason: Recheck today's complaints, Re-evaluation by your physician. Signatures: Allen Mukherjee MD MD cha Gardose, Michele, RN RN mg2 Percy Chambers RN RN ll1 Corrections: (The following items were deleted from the chart) 23:53 23:13 12/31/2019 23:13 Discharged to Home. Impression: Pain in right knee; Sprain of mg2 medial collateral ligament of right knee. Condition is Stable. Forms are Medication Reconciliation Form, Thank You Letter, Antibiotic Education, Prescription Opioid Use. Follow up: Private Physician; When: 2 - 3 days; Reason: Recheck today's complaints, Re-evaluation by your physician. Follow up: Alex Mcdonald; When: 2 - 3 days; Reason: Recheck today's complaints, Re-evaluation by your physician. day
[2019-12-31] MEDS ORDERED: HYDROCODONE/APAP 7.5/325 MG TAB ONE (23:20)
[2019-12-31 23:59] VITALS: BP 120/83; TEMP 98.6; O2SAT 98
== END 2019-12-31 23:53 | disposition home or self-care (01) ==
LOC: ER 22:38
DX: S83.411A Sprain of medial collateral ligament of right knee, initial encounter (principal); X58.XXXA Exposure to other specified factors, initial encounter; Y93.9 Activity, unspecified; Y92.009 Unspecified place in unspecified non-institutional (private) residence as the place of occurrence of the external cause
CPT/HCPCS: 99283